=== PATIENT | female | born 1980 | race Caucasian/White ===

== ENCOUNTER → 2017-04-06 | Outpatient (CLI) | payer OTHER ==
[~2017-04-06] MED LIST: IBUP-1222 PO; IBUPROFEN 600 MG TABLET ONE; OXYcodone/APAP 5/325MG TABLET ONE; PREN1TAB28 PO
== END | disposition home or self-care (01) ==
LOC: LDOP 10:16
PROVIDERS: ATTEND Obstetrics & Gynecology
DX: O09.523 Supervision of elderly multigravida, third trimester (principal); O26.893 Other specified pregnancy related conditions, third trimester; O62.9 Abnormality of forces of labor, unspecified; R10.9 Unspecified abdominal pain; Z3A.39 39 weeks gestation of pregnancy
CPT/HCPCS: 59025; 99201; G0463